=== PATIENT | male | born 1985 ===

== ENCOUNTER 2024-01-27 04:36 | Emergency (ER) | payer SELFPAY ==
[~2024-01-27] VITALS: Wt 109.1 kg
[~2024-01-27 04:36] MED LIST: BACTRIM DS TAB1 EACH PO; MECLIZINE PO; ZOFRAN ODT4 MG PO
[2024-01-27] MEDS ORDERED: Acetaminophen 500 MG TAB PO ONE (05:45)
[2024-01-27] MEDS ORDERED: NS 1,000 ML IV SCH (05:45)
[2024-01-27] MEDS ORDERED: Ondansetron 4 MG/2 ML VIAL IV ONE (05:45)
[2024-01-27 05:52] LABS: BASO # 0.02 K/mm3 (0.02-0.10); EOS # 0.08 K/mm3 (0.04-0.40); HEMATOCRIT 48.9 % (42.0-52.0); HEMOGLOBIN 16.2 g/dL (13.5-18.0); LYMPH# 0.86 K/mm3 (1.50-4.00); MEAN CELL VOLUME 88 fl (78-100); MEAN CORPUSCULAR HEMOGLOBIN 29 pg (27-31); MEAN CORPUSCULAR HGB CONC 33 g/dL (33-37); MEAN PLATELET VOLUME 9.9 fl (7.4-10.4); MONO # 0.59 K/mm3 (0.20-0.80); NEU # 6.67 K/mm3 (1.40-6.50); PLATELET COUNT 193 K/mm3 (130-400); RED BLOOD COUNT 5.55 M/mm3 (4.20-5.60); RED CELL DISTRIBUTION WIDTH 12.8 % (11.5-14.5); WHITE BLOOD COUNT 8.2 K/mm3 (4.8-10.8)
[2024-01-27 05:58] LABS: ALBUMIN 4.2 g/dL (3.5-5.0)
[2024-01-27 06:00] LABS: CALCIUM 9.2 mg/dL (8.3-10.5)
[2024-01-27 06:01] LABS: TOTAL PROTEIN 7.6 g/dL (6.4-8.3)
[2024-01-27 06:03] LABS: TOTAL BILIRUBIN 0.6 mg/dL (0.2-1.2)
[2024-01-27 07:10] VITALS: BP 140/100
== END 2024-01-27 07:11 | disposition home or self-care (01) ==
LOC: ED 04:36
PROVIDERS: Nurse Practitioner
DX: B34.9 Viral infection, unspecified (principal); R51.9 Headache, unspecified; R05.9 Cough, unspecified; R11.0 Nausea
CPT/HCPCS: J2405; J7030